=== PATIENT | male | born 1985 | race Hispanic/Latino ===

== ENCOUNTER 2018-05-18 05:33 | Emergency (ER) | payer SELFPAY ==
[2018-05-18] MEDS ORDERED: CYCLOBENZAPRINE 10 MG TAB ONE (06:55)
[2018-05-18] MEDS ORDERED: KETOROLAC 30 MG/ML INJ ONE (06:56)
--- NOTE | 2018-05-18 07:01 | ER ---
Nurse's Notes [facility] Name: Jose Haro Age: 32 yrs Sex: Male : 1985 Arrival Date: 05/18/2018 Time: 05:38 Bed 16 Private MD: Diagnosis: Low back pain;Muscle spasm of back Presentation: 05/18 05:46 Presenting complaint: Patient states: I was helping my sister lift some stuff yesterday jb4 and my lower back has been hurting since. 05:46 Transition of care: patient was not received from another setting of care. Onset of jb4 symptoms was May 17, 2018. Risk Assessment: Do you want to hurt yourself or someone else? Patient reports no desire to harm self or others. Initial Sepsis Screen: Does the patient meet any 2 criteria? No. Patient's initial sepsis screen is negative. Does the patient have a suspected source of infection? No. Patient's initial sepsis screen is negative. Care prior to arrival: None. 05:46 Method Of Arrival: Ambulatory jb4 05:46 Acuity: NAYE 4 jb4 Triage Assessment: 05:46 General: Appears in no apparent distress. uncomfortable, Behavior is calm, cooperative, jb4 appropriate for age. Pain: Complains of pain in low back area Pain does not radiate. Pain currently is 8 out of 10 on a pain scale. Quality of pain is described as shooting, Pain began 1 day ago. Is intermittent, Aggravated by increased activity, repositioning. EENT: No signs and/or symptoms were reported regarding the EENT system. Neuro: Level of Consciousness is awake, alert, obeys commands, Oriented to person, place, time, situation. Cardiovascular: Patient's skin is warm and dry. Respiratory: Airway is patent Respiratory effort is even, unlabored, Respiratory pattern is regular, symmetrical. GI: No signs and/or symptoms were reported involving the gastrointestinal system. : No signs and/or symptoms were reported regarding the genitourinary system. Derm: Skin is intact, Skin is pink, warm \T\ dry. Musculoskeletal: Circulation, motion, and sensation intact. Historical: - Allergies: 05:46 No Known Allergies; jb4 - Home Meds: 05:46 None [Active]; jb4 - PMHx: 05:46 None; jb4 - PSHx: 05:46 Appendectomy; jb4 - Immunization history:: Adult Immunizations up to date, Flu vaccine is not up to date. - Social history:: Smoking status: Patient/guardian denies using tobacco, Patient/guardian denies using alcohol. - Ebola Screening: : No symptoms or risks identified at this time. Screenin:46 Abuse screen: Denies threats or abuse. Nutritional screening: No deficits noted. jb4 Tuberculosis screening: No symptoms or risk factors identified. Fall Risk None identified. Assessment: 05:46 General: see triage assessment.. jb4 05:46 Neuro: Level of Consciousness is awake, alert, obeys commands, Oriented to person, jb4 place, time, situation. 07:00 General: Appears uncomfortable, Behavior is calm, cooperative. Pain: Complains of pain rb1 in low back area Pain currently is 9 out of 10 on a pain scale. Neuro: Level of Consciousness is awake, alert, obeys commands, Oriented to person, place, time, situation. Cardiovascular: Capillary refill < 3 seconds is brisk in bilateral fingers. Respiratory: Airway is patent Respiratory effort is even, unlabored, Respiratory pattern is regular, symmetrical. GI: No signs and/or symptoms were reported involving the gastrointestinal system. : No signs and/or symptoms were reported regarding the genitourinary system. Derm: Skin is pink, warm \T\ dry. Musculoskeletal: Range of motion: intact in all extremities. Vital Signs: 05:46 BP 132 / 86; Pulse 65; Resp 18; Temp 98.5(O); Pulse Ox 100% on R/A; Weight 77.11 kg jb4 (R); Height 5 ft. 8 in. (172.72 cm) (R); Pain 8/10; 07:00 BP 127 / 81; Pulse 64; Resp 16; Pulse Ox 100% ; Pain 9/10; rb1 05:46 Body Mass Index 25.85 (77.11 kg, 172.72 cm) jb4 ED Course: 05:38 Patient arrived in ED. es 05:45 Austin Guerrero, RN is Primary Nurse. jb4 05:46 Arm band placed on left wrist. jb4 05:46 Patient has correct armband on for positive identification. Bed in low position. Call jb4 light in reach. Side rails up X 1. Pulse ox on. NIBP on. 05:53 Triage completed. jb4 06:03 Bora Fernandes [facility] is [facility]. pm1 06:03 Manuel Loving MD is Attending Physician. pm1 07:18 No provider procedures requiring assistance completed. Patient did not have IV access rb1 during this emergency room visit. Administered Medications: 06:51 Drug: Flexeril 10 mg Route: PO; jb4 07:15 Follow up: Response: No adverse reaction rb1 06:52 Drug: TORadol 60 mg Route: IM; Site: left gluteus; jb4 07:18 Follow up: Response: No adverse reaction; Pain is unchanged, physician notified rb1 Outcome: 07:00 Discharge ordered by . pm1 07:18 Patient left the ED. rb1 07:18 Discharged to home ambulatory. rb1 07:18 Condition: stable 07:18 Discharge instructions given to patient, Instructed on discharge instructions, follow up and referral plans. medication usage, Demonstrated understanding of instructions, follow-up care, medications, Prescriptions given X 2. Signatures: Page Tony Rebecca RN RN rb1 Bora Fernandes NP [employer] pm1 Austin Guerrero RN RN jb4
--- NOTE | 2018-05-18 07:02 | EDPHYS ---
Physician Documentation [facility] Name: Jose Haro Age: 32 yrs Sex: Male : 1985 Arrival Date: 05/18/2018 Time: 05:38 Bed 16 Private MD: ED Physician Manuel Loving HPI: 05/18 06:55 This 32 yrs old Male presents to ER via Ambulatory with complaints of Back pm1 Pain. 06:55 The patient presents with pain that is acute. The symptoms are located in the low back. pm1 Onset: The symptoms/episode began/occurred 2 day(s) ago. The pain does not radiate. Associated signs and symptoms: The patient has no apparent associated signs or symptoms, Pertinent negatives: abdominal pain, chest pain, dysuria, fever, incontinence, numbness, tingling. The problem was sustained when lifting furniture, heavy object. Modifying factors: The patient symptoms are alleviated by remaining still, the patient symptoms are aggravated by bending, movement. Severity of symptoms: in the emergency department the symptoms are actually worse. The patient has experienced similar episodes in the past, a few times. The patient has not recently seen a physician. Patient was lifting furniture 2 days ago and hurt his back. Has had tow similar episodes in the past from lifting. Historical: - Allergies: 05:46 No Known Allergies; jb4 - Home Meds: 05:46 None [Active]; jb4 - PMHx: 05:46 None; jb4 - PSHx: 05:46 Appendectomy; jb4 - Immunization history:: Adult Immunizations up to date, Flu vaccine is not up to date. - Social history:: Smoking status: Patient/guardian denies using tobacco, Patient/guardian denies using alcohol. - Ebola Screening: : No symptoms or risks identified at this time. ROS: 06:55 Constitutional: Negative for fever, chills, and weight loss, Eyes: Negative for injury, pm1 pain, redness, and discharge, ENT: Negative for injury, pain, and discharge, Neck: Negative for injury, pain, and swelling, Cardiovascular: Negative for chest pain, palpitations, and edema, Respiratory: Negative for shortness of breath, cough, wheezing, and pleuritic chest pain, Abdomen/GI: Negative for abdominal pain, nausea, vomiting, diarrhea, and constipation. 06:55 : Negative for injury, bleeding, discharge, and swelling, MS/Extremity: Negative for injury and deformity, Skin: Negative for injury, rash, and discoloration, Neuro: Negative for headache, weakness, numbness, tingling, and seizure. 06:55 Back: Positive for of the low back area, pain. Exam: 06:55 Constitutional: This is a well developed, well nourished patient who is awake, alert, pm1 and in no acute distress. Head/Face: Normocephalic, atraumatic. Eyes: Pupils equal round and reactive to light, extra-ocular motions intact. Lids and lashes normal. Conjunctiva and sclera are non-icteric and not injected. Cornea within normal limits. Periorbital areas with no swelling, redness, or edema. ENT: Nares patent. No nasal discharge, no septal abnormalities noted. Tympanic membranes are normal and external auditory canals are clear. Oropharynx with no redness, swelling, or masses, exudates, or evidence of obstruction, uvula midline. Mucous membranes moist. Neck: Trachea midline, no thyromegaly or masses palpated, and no cervical lymphadenopathy. Supple, full range of motion without nuchal rigidity, or vertebral point tenderness. No Meningismus. Chest/axilla: Normal chest wall appearance and motion. Nontender with no deformity. No lesions are appreciated. Cardiovascular: Regular rate and rhythm with a normal S1 and S2. No gallops, murmurs, or rubs. Normal PMI, no JVD. No pulse deficits. Respiratory: Lungs have equal breath sounds bilaterally, clear to auscultation and percussion. No rales, rhonchi or wheezes noted. No increased work of breathing, no retractions or nasal flaring. Abdomen/GI: Soft, non-tender, with normal bowel sounds. No distension or tympany. No guarding or rebound. No evidence of tenderness throughout. 06:55 Skin: Warm, dry with normal turgor. Normal color with no rashes, no lesions, and no evidence of cellulitis. MS/ Extremity: Pulses equal, no cyanosis. Neurovascular intact. Full, normal range of motion. 06:55 Back: normal spinal alignment noted, muscle spasm, is appreciated in the left low back and right low back, No vertebral tenderness. 06:55 Neuro: Orientation: is normal, Motor: is normal, moves all fours, Gait: is steady, at a normal pace, without difficulty. Vital Signs: 05:46 BP 132 / 86; Pulse 65; Resp 18; Temp 98.5(O); Pulse Ox 100% on R/A; Weight 77.11 kg jb4 (R); Height 5 ft. 8 in. (172.72 cm) (R); Pain 8/10; 07:00 BP 127 / 81; Pulse 64; Resp 16; Pulse Ox 100% ; Pain 9/10; rb1 05:46 Body Mass Index 25.85 (77.11 kg, 172.72 cm) jb4 MDM: 06:04 Patient medically screened. pm1 06:59 Data reviewed: vital signs. Data interpreted: Pulse oximetry: on room air is 100 %. pm1 Interpretation: normal. Counseling: I had a detailed discussion with the patient and/or guardian regarding: the historical points, exam findings, and any diagnostic results supporting the discharge/admit diagnosis, the need for outpatient follow up, to return to the emergency department if symptoms worsen or persist or if there are any questions or concerns that arise at home. Administered Medications: 06:51 Drug: Flexeril 10 mg Route: PO; jb4 07:15 Follow up: Response: No adverse reaction rb1 06:52 Drug: TORadol 60 mg Route: IM; Site: left gluteus; jb4 07:18 Follow up: Response: No adverse reaction; Pain is unchanged, physician notified rb1 Disposition: 05/18/18 07:00 Discharged to Home. Impression: Low back pain, Muscle spasm of back. - Condition is Stable. - Discharge Instructions: Back Pain, Adult, Muscle Cramps and Spasms, Musculoskeletal Pain, Back Injury Prevention, [id number]. - Prescriptions for Cyclobenzaprine 10 mg Oral Tablet - take 1 tablet by ORAL route every 8 hours As needed; 30 tablet. Diclofenac Sodium 75 mg Oral Tablet Sustained Release - take 1 tablet by ORAL route 2 times per day; 30 tablet. - Medication Reconciliation Form, Thank You Letter form. - Follow up: Emergency Department; When: As needed; Reason: Worsening of condition. Follow up: Private Physician; When: 2 - 3 days; Reason: Recheck today's complaints, Continuance of care, Re-evaluation by your physician. - Problem is new. - Symptoms have improved. Signatures: Marielena George, RN RN rb1 Bora Fernandes NP [employer] pm1 Austin Guerrero RN RN jb4 Corrections: (The following items were deleted from the chart) 07:18 07:00 05/18/2018 07:00 Discharged to Home. Impression: Low back pain; Muscle spasm of rb1 back. Condition is Stable. Forms are Medication Reconciliation Form, Thank You Letter, Antibiotic Education, Prescription Opioid Use. Follow up: Emergency Department; When: As needed; Reason: Worsening of condition. Follow up: Private Physician; When: 2 - 3 days; Reason: Recheck today's complaints, Continuance of care, Re-evaluation by your physician. Problem is new. Symptoms have improved. pm1
== END 2018-05-18 07:18 | disposition home or self-care (01) ==
LOC: ER 05:33
DX: M62.830 Muscle spasm of back (principal); M54.5 Low back pain
CPT/HCPCS: 96372; 99283

== ENCOUNTER 2019-05-29 11:56 | Emergency (ER) | payer SELFPAY ==
--- NOTE | 2019-05-29 13:39 | ER ---
Nurse's Notes [facility] Name: Jose Haro Age: 33 yrs Sex: Male : 1985 Arrival Date: 05/29/2019 Time: 11:56 Bed 12 Private MD: Diagnosis: Influenza due to identified novel influenza A virus Presentation: 05/29 12:19 Presenting complaint: Headache, nonproductive cough, sinus congestion, subjective hb fever, and body aches x 2 days. Transition of care: patient was not received from another setting of care. Onset of symptoms was May 28, 2019. Risk Assessment: Do you want to hurt yourself or someone else? Patient reports no desire to harm self or others. Initial Sepsis Screen: Does the patient meet any 2 criteria? HR > 90 bpm. Does the patient have a suspected source of infection? No. Patient's initial sepsis screen is negative. Care prior to arrival: None. 12:19 Method Of Arrival: Ambulatory hb 12:19 Acuity: NAYE 4 hb Triage Assessment: 12:20 General: Appears in no apparent distress. Behavior is calm, cooperative. Pain: Pain hb currently is 8 out of 10 on a pain scale. EENT: Reports nasal discharge. Neuro: Level of Consciousness is awake, alert, obeys commands, Oriented to person, place, time, situation. Cardiovascular: Capillary refill < 3 seconds Patient's skin is warm and dry. Respiratory: Airway is patent Respiratory effort is even, unlabored, Respiratory pattern is regular, symmetrical. GI: No signs and/or symptoms were reported involving the gastrointestinal system. : No signs and/or symptoms were reported regarding the genitourinary system. Derm: Skin is intact, is healthy with good turgor. Musculoskeletal: No signs and/or symptoms reported regarding the musculoskeletal system. Historical: - Allergies: 12:20 No Known Allergies; hb - Home Meds: 12:20 None [Active]; hb - PMHx: 12:20 None; hb - PSHx: 12:20 Appendectomy; hb - Immunization history:: Adult Immunizations up to date. - Coronavirus screen:: The patient has NOT traveled to [place] in the past 14 days. The patient has NOT had contact with known/suspected case of Coronavirus? Proceed with normal triage procedures. - Social history:: Smoking status: Patient denies any tobacco usage or history of. - Ebola Screening: : No symptoms or risks identified at this time. Screenin:20 Abuse screen: Denies threats or abuse. Denies injuries from another. Nutritional hb screening: No deficits noted. Tuberculosis screening: No symptoms or risk factors identified. Fall Risk None identified. Assessment: 12:20 General: see triage assessment. hb 13:13 Reassessment: Patient appears in no apparent distress at this time. Patient and/or hb family updated on plan of care and expected duration. Pain level reassessed. Patient is alert, oriented x 3, equal unlabored respirations, skin warm/dry/pink. Vital Signs: 12:21 BP 134 / 87; Pulse 106; Resp 16; Temp 99.2; Pulse Ox 97% on R/A; Weight 77.11 kg; hb Height 5 ft. 9 in. (175.26 cm); Pain 8/10; 12:21 Body Mass Index 25.10 (77.11 kg, 175.26 cm) hb ED Course: 11:56 Patient arrived in ED. as 12:20 Triage completed. hb 12:21 Arm band placed on. hb 13:11 Lay Maldonado, RN is Primary Nurse. hb 13:13 Patient has correct armband on for positive identification. Call light in reach. hb 13:31 Indra Kelly MD is Attending Physician. kdr 13:54 No provider procedures requiring assistance completed. Patient did not have IV access hb during this emergency room visit. Administered Medications: No medications were administered Outcome: 13:38 Discharge ordered by . kdr 13:54 Discharged to home ambulatory. hb 13:54 Condition: stable 13:54 Discharge instructions given to patient, Instructed on discharge instructions, follow up and referral plans. medication usage, Demonstrated understanding of instructions, follow-up care, medications, Prescriptions given X 1. 13:54 Patient left the ED. hb Signatures: Indra Kelly MD MD kdr Sosa Castañeda as Lay Maldonado, RN RN hb
--- NOTE | 2019-05-29 13:40 | EDPHYS ---
Physician Documentation [facility] Name: Jose Haro Age: 33 yrs Sex: Male : 1985 Arrival Date: 05/29/2019 Time: 11:56 Bed 12 Private MD: ED Physician Indra Kelly HPI: 05/29 13:49 This 33 yrs old Male presents to ER via Ambulatory with complaints of Flu kdr Symptoms. 13:49 The patient started to have generalized body aches and fever yesterday. His temp was up kdr to 100.0 and he continues to have genralized aches and pain and feels feverish. Onset: The symptoms/episode began/occurred yesterday. Severity of symptoms: At their worst the symptoms were mild in the emergency department the symptoms are unchanged. The patient has not experienced similar symptoms in the past. The patient has not recently seen a physician. Historical: - Allergies: 12:20 No Known Allergies; hb - Home Meds: 12:20 None [Active]; hb - PMHx: 12:20 None; hb - PSHx: 12:20 Appendectomy; hb - Immunization history:: Adult Immunizations up to date. - Coronavirus screen:: The patient has NOT traveled to [place] in the past 14 days. The patient has NOT had contact with known/suspected case of Coronavirus? Proceed with normal triage procedures. - Social history:: Smoking status: Patient denies any tobacco usage or history of. - Ebola Screening: : No symptoms or risks identified at this time. ROS: 13:49 Eyes: Negative for injury, pain, redness, and discharge, Neck: Negative for injury, kdr pain, and swelling, Cardiovascular: Negative for chest pain, palpitations, and edema, Respiratory: Negative for shortness of breath, cough, wheezing, and pleuritic chest pain, Abdomen/GI: Negative for abdominal pain, nausea, vomiting, diarrhea, and constipation, Back: Negative for injury and pain, : Negative for injury, bleeding, discharge, and swelling, MS/Extremity: Negative for injury and deformity, Skin: Negative for injury, rash, and discoloration, Neuro: Negative for headache, weakness, numbness, tingling, and seizure activity. Psych: Negative for depression, anxiety, suicide ideation, homicidal ideation, and hallucinations, Allergy/Immunology: Negative for hives, rash, and allergies, Endocrine: Negative for neck swelling, polydipsia, polyuria, polyphagia, and marked weight changes, Hematologic/Lymphatic: Negative for swollen nodes, abnormal bleeding, and unusual bruising. 13:49 Constitutional: Positive for body aches, chills, fatigue, fever, malaise. Exam: 13:49 Constitutional: This is a well developed, well nourished patient who is awake, alert, kdr and in no acute distress. Head/Face: Normocephalic, atraumatic. Eyes: Pupils equal round and reactive to light, extra-ocular motions intact. Lids and lashes normal. Conjunctiva and sclera are non-icteric and not injected. Cornea within normal limits. Periorbital areas with no swelling, redness, or edema. ENT: Nares patent. No nasal discharge, no septal abnormalities noted. Tympanic membranes are normal and external auditory canals are clear. Oropharynx with no redness, swelling, or masses, exudates, or evidence of obstruction, uvula midline. Mucous membranes moist. Neck: Trachea midline, no thyromegaly or masses palpated, and no cervical lymphadenopathy. Supple, full range of motion without nuchal rigidity, or vertebral point tenderness. No Meningismus. Chest/axilla: Normal chest wall appearance and motion. Nontender with no deformity. No lesions are appreciated. Cardiovascular: Regular rate and rhythm with a normal S1 and S2. No gallops, murmurs, or rubs. Normal PMI, no JVD. No pulse deficits. Respiratory: Lungs have equal breath sounds bilaterally, clear to auscultation and percussion. No rales, rhonchi or wheezes noted. No increased work of breathing, no retractions or nasal flaring. Abdomen/GI: Soft, non-tender, with normal bowel sounds. No distension or tympany. No guarding or rebound. No evidence of tenderness throughout. Back: No spinal tenderness. No costovertebral tenderness. Full range of motion. Skin: Warm, dry with normal turgor. Normal color with no rashes, no lesions, and no evidence of cellulitis. MS/ Extremity: Pulses equal, no cyanosis. Neurovascular intact. Full, normal range of motion. Neuro: Awake and alert, GCS 15, oriented to person, place, time, and situation. Cranial nerves II-XII grossly intact. Motor strength 5/5 in all extremities. Sensory grossly intact. Cerebellar exam normal. Normal gait. Psych: Awake, alert, with orientation to person, place and time. Behavior, mood, and affect are within normal limits. Vital Signs: 12:21 BP 134 / 87; Pulse 106; Resp 16; Temp 99.2; Pulse Ox 97% on R/A; Weight 77.11 kg; hb Height 5 ft. 9 in. (175.26 cm); Pain 8/10; 12:21 Body Mass Index 25.10 (77.11 kg, 175.26 cm) hb MDM: 13:38 Patient medically screened. kdr 13:49 Data reviewed: vital signs, nurses notes, lab test result(s), radiologic studies. kdr Counseling: I had a detailed discussion with the patient and/or guardian regarding: the historical points, exam findings, and any diagnostic results supporting the discharge/admit diagnosis, lab results, radiology results, the need for outpatient follow up. 05/29 12:20 Order name: Flu; Complete Time: 13:37 05/29 12:20 Order name: Strep; Complete Time: 13:37 05/29 12:54 Order name: Throat Culture EDMS Administered Medications: No medications were administered Disposition: 05/29/19 13:38 Discharged to Home. Impression: Influenza due to identified novel influenza A virus. - Condition is Stable. - Discharge Instructions: Influenza, Adult, [id number]. - Prescriptions for Tamiflu 75 mg Oral Capsule - take 1 tablet by ORAL route every 12 hours for 5 days; 10 tablet. - Medication Reconciliation Form, Thank You Letter, Antibiotic Education, Work release form form. - Follow up: Private Physician; When: 2 - 3 days; Reason: If symptoms return, Further diagnostic work-up, Recheck today's complaints, Continuance of care, Re-evaluation by your physician. - Problem is new. - Symptoms have improved. Signatures: Dispatcher [employer] EDMS Indra Kelly MD MD kdr Lay Maldonado RN RN Corrections: (The following items were deleted from the chart) 13:54 13:38 05/29/2019 13:38 Discharged to Home. Impression: Influenza due to identified hb novel influenza A virus. Condition is Stable. Forms are Medication Reconciliation Form, Thank You Letter, Antibiotic Education, Prescription Opioid Use. Follow up: Private Physician; When: 2 - 3 days; Reason: If symptoms return, Further diagnostic work-up, Recheck today's complaints, Continuance of care, Re-evaluation by your physician. Problem is new. Symptoms have improved. kdr
[2019-05-29 14:57] VITALS: BP 134/87; TEMP 99.2; O2SAT 97
== END 2019-05-29 13:54 | disposition home or self-care (01) ==
LOC: ER 11:56
DX: J09.X9 Influenza due to identified novel influenza A virus with other manifestations (principal)
CPT/HCPCS: 87070; 87081; 87804; 99282